=== PATIENT | male | born 1990 | race Caucasian/White ===

== ENCOUNTER 2023-07-03 10:14 | Outpatient (CLI) | payer BC, SELFPAY | END 2023-07-03 10:15 | disposition home or self-care (01) | LOC: AMB 07-08 09:43 | PROVIDERS: Visit Provider Emergency Medicine Emergency Medical Services | DX: R55 Syncope and collapse (principal) | CPT/HCPCS: A0425; A0427 ==

== ENCOUNTER 2023-07-03 10:37 | Emergency (ER) | payer BC, SELFPAY ==
[2023-07-03 10:43] VITALS: BP 126/82; PULSE 61; RESP 18; TEMP 36.2; O2SAT 100
--- NOTE | 2023-07-03 11:38 | ED.GENADULT ---
HPI - General Adult General Chief complaint: Syncope/Fainted Stated complaint: Syncope Time Seen by Provider: 07/03/23 11:24 History of Present Illness HPI narrative: states that he had taken excedrin migraine this am at 0830 due to a slight headache. did proceed to work and while at his desk he passed out lost consciousness. unwitnessed and felt he was not out long. came too and coworker called 911. never has had this in the past. admits to having migraines in the past. has not seen a dr for this and has never had a ct scan. ate brfst. did feel nauseated and dizzy prior to loosing consciousness. bs was 109. lives alone. 33-year-old man presenting to the emergency department after apparent syncopal event. Describes headaches occurring every 2-3 months perhaps. Can be accompanied by nausea, light or sound sensitivity. Is normally active without any particular difficulty. No family history of arrhythmia or sudden cardiac . This morning had beginnings of a headache and took a tablet of Excedrin migraine. Did have a breakfast of some rice checks apparently. Was at work then and was feeling nauseated and then lightheaded. Woke up on the floor. Not known to have hit his head. No seizure history. Has no head pain beyond the pain at the occipital insertion area. Played pickle ball for an hour and half last night and does not think he drank enough water; would think himself dehydrated. Regularly physically active without difficulty. Related Data Home Medications Medication Instructions Recorded Confirmed No Known Home Medications 07/03/23 07/03/23 Allergies Allergy/AdvReac Type Severity Reaction Status Date / Time No Known Drug Allergies Allergy Verified 07/03/23 10:43 Review of Systems Status of ROS: Reports: 6 or more systems reviewed and unremarkable except as noted in History and below PFSH PFS Social History Smoking Status: Never smoker Do you use any of these nicotine containing products: None Second hand tobacco smoke exposure: No How often do you have a drink containing alcohol: monthly or less How many standard drinks containing alcohol do you have on a typical day: 1 or 2 How often do you have six or more drinks on one occasion: Never AUDIT-C Alcohol total score: 1 Non-prescribed substance use: denies use service: No Exam Narrative: Exam Narrative: Very pleasant. Mildly anxious. Becomes tearful during during this exam/interview. Seems a little fatigued. Skin is warm and dry. No rashes evident. Extremities are well perfused and lower extremities are without edema. Lungs are clear. Heart in a regular rate and rhythm without murmur rub or gallop. Abdomen is flat soft nontender. Cranial nerves 2-12 are intact. Extraocular movements are full and without nystagmus. Moving extremities fluidly with good strength. Head is atraumatic. Neck is supple nontender. Back nontender. Const: Vital Signs, click to edit/add: Vital Signs - 24 hr 07/03/23 10:43 07/03/23 13:07 Temperature 97.2 F L Pulse Rate 73 Pulse Rate [Pulse Oximeter] 61 Respiratory Rate 18 16 Blood Pressure 139/98 H Blood Pressure [Ri ght Upper Arm] 126/82 Pulse Oximetry 100 98 Oxygen Delivery Me thod Room Air Documenting provider has reviewed patient's vital signs: yes Course Vital Signs Vital signs: Initial Vital Signs Temperature 97.2 F L 07/03/23 10:43 Temperature Source Temporal Artery Scan 07/03/23 10:43 Pulse Rate 61 07/03/23 10:43 Pulse Rhythm Regular 07/03/23 10:43 Respiratory Rate 18 07/03/23 10:43 Blood Pressure 126/82 07/03/23 10:43 Blood Pressure Mean 96 07/03/23 10:43 Blood Pressure Position Supine 07/03/23 10:43 Pulse Oximetry 100 07/03/23 10:43 Oxygen Delivery Method Room Air 07/03/23 10:43 Vital Signs Temperature 97.2 F L 07/03/23 10:43 Pulse Rate 61 07/03/23 10:43 Respiratory Rate 18 07/03/23 10:43 Blood Pressure 126/82 07/03/23 10:43 Pulse Oximetry 100 07/03/23 10:43 Oxygen Delivery Method Room Air 07/03/23 10:43 Temperature 97.2 F L 07/03/23 10:43 Pulse Rate 73 07/03/23 13:07 Respiratory Rate 16 07/03/23 13:07 Blood Pressure 139/98 H 07/03/23 13:07 Pulse Oximetry 98 07/03/23 13:07 Oxygen Delivery Method Room Air 07/03/23 10:43 Medical Decision Making MDM Narrative Medical decision making narrative: I suspect probably a vasovagal event brought on by the mild nausea maybe by pill on an empty stomach. Maybe he is getting a viral illness of some sort. Certainly could have been some sort of arrhythmia. No respiratory symptoms consistent with pulmonary embolus otherwise. No associated chest pain. May have been ischemic cardiovascular event. Doubtful dissection. No indication otherwise of infectious etiology. Does not seem to have any residual symptoms to suggest TIA/CVA. The suppose it could have been a seizure. Does not appear to be postictal. No described seizure-like activity otherwise. At this point will hydrate. Antiemetics. Monitor on residential monitor. Labs are reassuring. Improved after hydration. Rest. Color looks better. Looks to have more energy. More positive affect. See patient discharge plan Lab Data Lab results reviewed: Yes I reviewed the patient's lab results Labs: Lab Results 07/03/23 Range/Units 12:05 WBC 10.38 (4.50-11.00) K/uL RBC 5.74 (4.30-5.90) m/uL Hgb 16.3 (13.5-17.5) gm/dL Hct 51.2 (37.0-53.0) % MCV 89 (80-100) fL MCH 28 (26-34) pg MCHC 32 (32-36) gm/dL RDW Coeff of Rose 13.7 (11.5-15.5) % Plt Count 280 (140-440) K/uL Neut % (Auto) 77.3 H (42.0-72.0) % Lymph % (Auto) 14.5 L (20-44) % Scott % (Auto) 7.4 (0.0-11.0) % Eos % (Auto) 0.4 (0.0-7.0) % Baso % (Auto) 0.2 (0.0-3.0) % Neut # (Auto) 8.00 H (1.7-7.0) K/uL Lymph # (Auto) 1.50 (0.90-2.90) K/uL Scott # (Auto) 0.80 (0.00-0.90) K/UL Eos # (Auto) 0.04 (0.00-0.50) K/uL Baso # (Auto) 0.02 (0.00-0.30) K/uL Abs Immat Gran (auto) 0.02 (0.00-0.30) K/uL Imm/Tot Granulo (auto) 0.2 % Sodium 141 (135-149) mmol/L Potassium 4.2 (3.6-5.1) mmol/L Chloride 102 (96-114) mmol/L Carbon Dioxide 23 (20-32) mmol/L BUN 16 (5-24) mg/dL Creatinine 0.8 (0.5-1.5) mg/dL Estimated Creat Clear 147.46 Estimated GFR 120 ml/min Glucose 93 (60-115) mg/dL Calcium 9.9 (8.4-10.6) mg/dL Magnesium 2.2 (1.5-2.6) mg/dL Troponin I < 0.01 L (0.01-0.04) ng/mL NT-Pro-B Natriuret Pep 24 pg/mL TSH 3.580 (0.270-4.20) uIU/mL ECG Data Attestation: I personally reviewed and interpreted this ECG as follows: (Normal sinus rate of 63 delta waves. No acute ischemic changes.) Discharge Plan Discharge Clinical Impression: Vasovagal syncope, Headache Patient Disposition: Home, Self-Care Condition: Improved Additional Instructions: Yes. Do continue to focus on hydration. Try to get in a little heart pumping exercise daily. See handout on stretches for the upper back in addition might do the neck pull-downs as discussed daily. I would schedule a follow-up in primary care to discuss your recurrent headaches and this episode today. Return for persistent and worsening lightheadedness, shortness of breath, chest pain, uncontrolled headache, new and focal weakness. Prescriptions: No Action No Known Home Medications Follow Up/Referrals: Provider,Not a Local [Primary Care Provider] - Stand Alone Forms: [employer] Info Instructions
[2023-07-03 12:15] LABS: Basophils Absolute Auto 0.02 K/uL (0.00-0.30); Basophils Percent Auto 0.2 % (0.0-3.0); Eosinophils Absolute Auto 0.04 K/uL (0.00-0.50); Eosinophils Percent Auto 0.4 % (0.0-7.0); Hematocrit 51.2 % (37.0-53.0); Hemoglobin* 16.3 gm/dL (13.5-17.5); Immature Granulocytes Abs Auto 0.02 K/uL (0.00-0.30); Immature Granulocytes Pct Auto 0.2 %; Lymphocytes Percent Auto 14.5 % (20-44); Mean Corpuscular HGB Conc 32 gm/dL (32-36); Mean Corpuscular Hemoglobin 28 pg (26-34); Mean Corpuscular Volume 89 fL (80-100); Monocytes Percent Auto 7.4 % (0.0-11.0); Neutrophils Percent Auto 77.3 % (42.0-72.0); Platelet Count* 280 K/uL (140-440); RDW Coefficient of Variation % 13.7 % (11.5-15.5); Red Blood Count 5.74 m/uL (4.30-5.90); White Blood Count* 10.38 K/uL (4.50-11.00)
[2023-07-03] MEDS: KETOROLAC 30 MG/ML inj IVP (12:19)
[2023-07-03] MEDS: 0.9 % SODIUM CHLORIDE 1000 ml 1,000 ML 2000 ML IV (12:19)
[2023-07-03 12:21] LABS: Slide Review Reflex No
[2023-07-03 12:22] LABS: Chloride* 102 mmol/L (96-114); Sodium* 141 mmol/L (135-149)
[2023-07-03 12:23] LABS: Potassium* 4.2 mmol/L (3.6-5.1)
[2023-07-03 12:25] LABS: Carbon Dioxide* 23 mmol/L (20-32); Creatinine* 0.8 mg/dL (0.5-1.5); Est. Creatinine Clearance* 147.46; Estimated Glomerular Filt Rate 120 ml/min; Magnesium* 2.2 mg/dL (1.5-2.6)
[2023-07-03 12:26] LABS: Blood Urea Nitrogen* 16 mg/dL (5-24); Calcium* 9.9 mg/dL (8.4-10.6); Glucose* 93 mg/dL (60-115)
[2023-07-03 12:38] LABS: NT Pro B Type NatriureticPept* 24 pg/mL; Troponin I* < 0.01 ng/mL (0.01-0.04)
[2023-07-03 13:07] VITALS: BP 139/98; PULSE 73; RESP 16; O2SAT 98
== END 2023-07-03 13:48 | disposition home or self-care (01) ==
PROVIDERS: Emergency Provider Family Medicine
DX: R55 Syncope and collapse (principal); R51.9 Headache, unspecified
CPT/HCPCS: 36415; 80048; 83735; 83880; 84443; 84484; 85025; 96374; 99284; J1885; J7030

== ENCOUNTER 2024-06-08 09:25 | Outpatient (CLI) | payer BC, SELFPAY ==
--- OUTSIDE RECORDS SUMMARY | 2024-06-08 09:32 | XMS_ITS | Clinical Summary ---
Author Organization [facility] Address [place], [place] [address] Care Team Providers Care Radar Systems Engineer Name Role Phone Clinic, No Pcp Or Primary Care Provider Unavaila ble Allergies No known active allergies Medications Medication Sig Dispensed Refills Start Date End Date Status SUMAtriptan (Imitrex) 100 mg tabletIndications:Mi graine with aura, not intractable, without status migrainosus Take 1 Tablet (100 mg) by mouth one time if needed for Migraine for up to 1 dose. May repeat in 2 hrs. Maximum of 2 in 24 hours 9 Tablet 5 07/06/2023 Active ondansetron (Zofran) 4 mg tabletIndications:Mi graine with aura, not intractable, without status migrainosus Take 1 Tablet (4 mg) by mouth 3 times daily if needed for Nausea/Vomiting. 15 Tablet 07/06/2023 Active ketoconazole 2% topical (NIZORAL) creamIndications:Int ertrigo Apply topically to affected area(s) two times daily. Use for 14 days. 60 g 07/27/2023 Active Active Problems Problem Noted Date Diagnosed Date Migraine with aura, not intr actable, without status migrainosus 07/06/2023 Overview: Onset 32 Nausea is aura Has vomited Photo phono phobia No family history Has to go to dark room and wait until next day Scaphoid fracture of wrist 04/05/2009 Immunizations Name Administration Dates Next Due COVID-19 vaccine (Moderna 100mcg/0.5mL) PF, MDV 10/16/2021 COVID-19 vaccine (Moderna 50 mcg/0.5mL) 12YO+ BIVALENT PF, MDV 08/06/2022 DTP 06/12/1995 Hepatitis A (Adult) 10/08/2011 Hepatitis A (Peds) 11/02/2008 Hepatitis B (Peds) 05/03/2001,03/13/2000, 000 Influenza A (H1N1), Inactivated 11/02/2009 Influenza A (H1N1), Live Intranasal 11/05/2009 Influenza, IIV3 (Age 6-35 mos) 11/19/2009 Influenza, IIV3 (Age >=3 years) 08/17/20 12,08/19/2011,08/13/2010,11/19,11/02/2008 Influenza, IIV4 07/27/2023,08/28/2022,08/29/2021 Influenza, IIV4 (=>6mos) MDV 08/29/2020,08/25/20 19 MMR 05/03/2001,09/15/1991 Meningococcal Vaccine (Menactra) 11/02/2008 Oral Polio Vaccine 06/12/1995 Td (Age >=7 Years) 05/03/2001 Tdap 06/12/2022,10/08/2011 Typhoid (oral) 10/12/2011 Varicella Vaccine 11/02/2008 Yellow Fever 10/08/2011 Social History Tobacco Use Types Packs/Day Years Used Date Smoking Tobacco: Never Smokeless Tobacco: Never Tobacco Cessation:Counseling Given: Yes Alcohol Use Standard Drinks/Week Comments No 0 (1 standard drink = 0.6 oz pur e alcohol) PHQ-2 Answer Date Recorded PHQ-2 TOTAL SCORE 0 07/06/2023 Social Connections Answer Date Recorded Frequency of Communication with Friends and Fami ly 0 07/06/2023 Financial Resource Strain Answer Date R ecorded Difficulty of Paying Living Expenses 3 07/06/2023 Difficulty of Paying Living Expenses Not on file 07/06/2023 Food Insecurity Answer Date Recorded Worried About Running Out of Food in the Last Ye ar 1 07/06/2023 Transportation Needs Answer Date Record ed Lack of Transportation (Medical) 1 07/06/2023 Housing Stability Answer Date Recorded Unable to Pay for Housing in the Last Year 1 07/06/2023 Sex and Gender Information Value Date Recorded Sex Assigned at Not on file Gender Identity Not on file Sexual Orientation Not on file Obstetrics History Last Filed Vital Signs Vital Sign Reading Time Taken Comments Blood Pressure 123/86 07/27/2023 9:32 AM CDT Pulse 90 07/27/2023 9:32 AM CDT Temperature 36.6 ??C (97.8 ??F) 07/06/2023 10:25 AM C DT Respiratory Rate - - Oxygen Saturation 100% 07/27/2023 9:32 AM CDT Inhaled Oxygen Concentration - - Weight 83.5 kg (184 lb) 07/27/2023 9:32 AM CDT Height 180.3 cm (5' 11) 07/06/2023 10:25 AM CDT Body Mass Index 25.66 07/06/2023 10:25 AM CDT Plan of Treatment Health Maintenance Due Date Last Done Comments HIV for age 15-65 2005 Hepatitis C screening for age 18-79 2008 COVID-19 vaccine series (2022- season) 2023 08/06/2022, 10/16/2021, 03/21/2021, Additional history exists BMI (ht and wt on same day) for age 18+ 07/06/2024 07/06/2023, 07/20/2018 Depression screening for age 12+ 07/06/2024 07/06/2023, 07/20/2018 Influenza for age 9-49 07/17/2024 , 08/28/2022, 08/29/2021, Additional history exists Tetanus booster 06/12/2032 06/12/2022, 09/17, 05/03/2001 Tdap Completed 06/12/2022, 10/08/2011 Pneumococcal series for age 6-64 Aged Out No longer eligible based on patient's age to complete this topic Care Teams Radar Systems Engineer Relationship Specialty Start Date End Date Clinic, No Pcp Or . PCP - General 07/20/18
== END 2024-06-08 09:26 | disposition home or self-care (01) ==
PROVIDERS: PCP Registered Nurse; Visit Provider Registered Nurse
DX: R53.83 Other fatigue (principal); F32.A Depression, unspecified; Z13.6 Encounter for screening for cardiovascular disorders
CPT/HCPCS: 80061; 82947; 84443